=== PATIENT | male | born 1970 | race Caucasian/White ===

== ENCOUNTER 2021-07-13 16:27 | Emergency (ER) | payer OTHER, SELFPAY ==
--- NOTE | ~2021-07-13 | CT_ITS ---
EXAMINATION: CT HEAD WITHOUT CONTRAST CLINICAL INFORMATION: Dizziness. New atrial fibrillation. COMPARISON: None TECHNIQUE: Contiguous axial imaging was performed from the skull base to vertex without intravenous administration of contrast. This CT examination was performed using dose optimization techniques as appropriate, variously including the following: *Automated exposure control *Adjustment of mA and/or kV according to patient size (this includes techniques or standardized protocols for targeted exams where dose is matched to indication/reason for exam; i.e. extremities or head) *Use of iterative reconstruction technique DLP: 970 mGy-cm FINDINGS: No intracranial hemorrhage, tumors or definitive acute infarcts. Mild diffuse commensurate prominence of ventricles and sulci. No focal parenchymal lesions of the brain. Lobulated rounded soft tissue density within the left maxillary sinus and right maxillary sinus likely representing mucosal retention cyst. Normal orbits and globes. No mastoid effusions. CT/CT head/brain wo con IMPRESSION: -No acute intrarenal abnormalities.
[2021-07-13 17:13] VITALS: BP 147/99; PULSE 100; RESP 17; TEMP 36.9; O2SAT 98; BMI 33.3
[2021-07-13 21:32] LABS: MANUAL DIFF FLAG NO
[2021-07-13 21:38] LABS: Basophils Percent Auto 0.4 % (0-2); Eosinophils Absolute Auto 0.1 X10*3/uL (0.0-0.4); Hematocrit 46.7 % (42.0-52.0); Hemoglobin 16.6 g/dl (14.0-18.0); Imm Gran Abs Auto 0.02 X10*3/uL (0.00-0.03); Imm Gran Pct Auto 0.2 % (0.0-0.4); Lymphocytes Absolute Auto 3.9 X10*3/uL (1.2-4.9); Lymphocytes Percent Auto 36.3 % (20-40); Mean Corpuscular HGB Conc 35.5 g/dl (31.0-36.0); Mean Corpuscular Hemoglobin 29.6 pg (27.0-33.0); Mean Corpuscular Volume 83.2 fL (80.0-98.0); Mean Platelet Volume 9.8 fL (9.4-12.4); Monocytes Percent Auto 9.5 % (2-11); Neutrophils Absolute Auto 5.6 x10*3/uL (2.0-8.3); Neutrophils Percent Auto 52.6 % (45-73); Platelet Count 298 X10*3/uL (160-400); Red Blood Count 5.61 X10*6/uL (4.60-5.80); Red Cell Distribution Width 12.8 % (11.0-16.0); White Blood Count 10.7 X10*3/uL (4.8-10.8)
[2021-07-13 21:47] LABS: Alanine Aminotransferase 45 U/L (0-40); Alkaline Phosphatase 60 U/L (39-117); Anion Gap 12 (12-20); Aspartate Amino Transferase 32 U/L (5-37); Bilirubin Total 1.7 mg/dL (0.0-1.0); Blood Urea Nitrogen 13 mg/dL (9-16); Calcium 9.6 mg/dL (8.4-10.2); Carbon Dioxide 29 mmol/L (22-29); Chloride 103 mmol/L (96-108); Creatinine Clr Calc Pharmacy 136.9; Estimated Glomerular Filt Rate > 60; Glucose Random 95 mg/dL (60-115); Potassium 3.8 mmol/L (3.3-5.1); Sodium 140 mmol/L (135-145); Total Protein 7.2 g/dL (6.5-8.0)
--- NOTE | 2021-07-13 22:04 | ECG_ITS ---
Test Reason : dizzy/afib? Blood Pressure : / mmHG Vent. Rate : 102 BPM Atrial Rate : 000 BPM P-R Int : 000 ms QRS Dur : 092 ms QT Int : 372 ms P-R-T Axes : 000 056 131 degrees QTc Int : 484 ms Atrial fibrillation with rapid ventricular response Nonspecific T wave abnormality Abnormal ECG No previous ECGs available Referred By: Daniela Traore Electronically Signed By:JESSIE EARLY MD
--- NOTE | 2021-07-13 22:04 | ED_ITS ---
HPI - Dizziness General Chief Complaint: Dizziness Stated Complaint: Dizziness Time Seen by Provider: 07/13/21 22:03 Source: patient Mode of arrival: ambulatory History of Present Illness HPI Narrative: 50-year-old male without significant past medical history presents with mild, intermittent lightheadedness that began on and has not been associated with any headache, visual / auditory/ speech changes, sore throat, new cough, shortness of breath or nausea. Patient denies that this preferentially occurs while exerting himself and has not felt like he was going to pass out . Patient states that he was seen at [facility] and said that he was told he had atrial fibrillation at that time. Otherwise, he has denied any numbness / tingling/ weakness in any extremities, gait disturbances, or inability to perform any of his normal activities of daily living. Related Data Previous Rx's Medication Instructions Recorded metoprolol tartrate 25 mg tablet 12.5 mg PO BID #60 tab 07/13/21 Allergies Allergy/AdvReac Type Severity Reaction Status Date / Time No Known Allergies Allergy Verified 07/13/21 17:13 Review of Systems Review of Systems: Pertinent positives and negatives as stated in HPI and 10 point review of systems is otherwise negative. PMFSH Past Medical History Source: nursing notes reviewed Medical History Hypertension Social History Social History Advance Directives: No Advance Directives Information Provided: No Physical Exam Vital Signs: Vital Signs: Last Vital Signs Temp 98.4 F 07/13/21 17:13 Pulse 100 07/13/21 17:13 Resp 17 07/13/21 17:13 BP 147/99 H 07/13/21 17:13 Pulse Ox 98 07/13/21 17:13 Body Mass Index 33.3 VITAL SIGNS: Reviewed. GENERAL: Well developed, well nourished, in no acute distress. HEAD: Normocephalic/atraumatic EYES: PERRLA, EOMI OROPHARYNX: no oral lesions noted, posterior pharynx clear NECK: Supple, no adenopathy LUNGS: Normal breath sounds. No adventitious sounds or accessory muscle use. SpO2<98> CARDIOVASCULAR: Regular rate and rhythm without noted murmurs, no JVD or lower extremity edema. ABDOMEN: Soft, non-tender, non-distended with bowel sounds. MUSCULOSKELETAL: No tenderness, deformities, or effusions noted on gross inspection. EXTREMITIES: No cyanosis, clubbing or edema. SKIN: Inspection of the skin reveals no rashes NEUROLOGIC: Alert and oriented x 4. Strength and sensation to light touch were grossly intact x 4 , no facial asymmetry, no pronator drift, cranial nerves 2-12 grossly intact, steady gait,. Course Course Course Narrative: 50-year-old male who presents with lightheadedness and new onset atrial fibrillation without focal deficits or chest pain/ palpitations/ racing heart. No syncopal or near syncopal episodes described and on review of chart although there is a diagnosis of hypertension patient is not on any medications currently. Will provide the patient with Lopressor as heart rate> 100 and EKG confirms atrial fibrillation. [id number] - 0.6% Stroke risk/yr Review of all investigations otherwise negative for acute findings, patient was discharged home in stable condition with a script for rate control medication. He was also informed all results and findings and knows that he should follow up with Cardiology as well as primary care provider 1st thing in the morning. MDM - Dizziness Lab Data Result diagrams: 07/13/21 21:24 07/13/21 21:24 Labs: Lab Results 07/13/21 07/13/21 Range/Units 21:24 21:24 WBC 10.7 (4.8-10.8) X10*3/uL RBC 5.61 (4.60-5.80) X10*6/uL Hgb 16.6 (14.0-18.0) g/dl Hct 46.7 (42.0-52.0) % MCV 83.2 (80.0-98.0) fL MCH 29.6 (27.0-33.0) pg MCHC 35.5 (31.0-36.0) g/dl RDW 12.8 (11.0-16.0) % Plt Count 298 (160-400) X10*3/uL MPV 9.8 (9.4-12.4) fL Immature Gran % (Auto) 0.2 (0.0-0.4) % Neut % (Auto) 52.6 (45-73) % Lymph % (Auto) 36.3 (20-40) % [place] % (Auto) 9.5 (2-11) % Eos % (Auto) 1.0 (0-4) % Baso % (Auto) 0.4 (0-2) % Lymph # (Auto) 3.9 (1.2-4.9) X10*3/uL [place] # (Auto) 1.0 (0.1-1.2) X10*3/uL Eos # (Auto) 0.1 (0.0-0.4) X10*3/uL Baso # (Auto) 0.0 (0.0-0.2) X10*3/uL Abs Immat Gran (auto) 0.02 (0.00-0.03) X10*3/uL Absolute Neuts (auto) 5.6 (2.0-8.3) x10*3/uL Absolute Nucleated RBC 0.000 (0.0-0.012) X10*3/uL Nucleated RBC % (auto) 0.0 (0.0-0.2) /100WBC Sodium 140 (135-145) mmol/L Potassium 3.8 (3.3-5.1) mmol/L Chloride 103 (96-108) mmol/L Carbon Dioxide 29 (22-29) mmol/L Anion Gap 12 (12-20) BUN 13 (9-16) mg/dL Creatinine 0.90 (0.5-1.4) mg/dL Estim Creat Clear Calc 136.9 Estimated GFR > 60 Random Glucose 95 (60-115) mg/dL Calcium 9.6 (8.4-10.2) mg/dL Total Bilirubin 1.7 H (0.0-1.0) mg/dL AST 32 (5-37) U/L ALT 45 H (0-40) U/L Alkaline Phosphatase 60 (39-117) U/L Total Protein 7.2 (6.5-8.0) g/dL Albumin 4.0 (3.5-5.0) g/dL ECG Data Attestation: I personally reviewed and interpreted this ECG as follows: Prior ECG tracings: not available for review Interpretation: Atrial fibrillation, HR-102, no STEMI, QRS/ QTC within normal limits. Discharge Plan Discharge Clinical Impression: New onset atrial fibrillation Patient Disposition: Home, Self-Care Instructions: Metoprolol (By mouth), A-fib (Atrial Fibrillation) (ED) Additional Instructions: You have a new diagnosis of atrial fibrillation and you have been started on a new medication. Follow-up with the clinic in the morning for re-evaluation further outpatient management. You have also been given a referral to follow-up with Cardiology and should call the office in the morning. Return to the ER for acute worsening of symptoms. Prescriptions: New metoprolol tartrate 25 mg tablet 12.5 mg PO BID Qty: 60 RF: 0 Referrals: Devyn Cruz MD [Physician] - 2 days ( 50-year-old male with new onset atrial fibrillation, chads Vasc score is 0, started on Lopressor 12.5 b.i.d. since heart rate greater than 100.) Tamiko Turner MD [Primary Care Provider] - 2 days ( New onset AFib, chads Vasc-0, started on Lopressor 12.5 b.i.d.) Stand Alone Forms: Work/School Release
[2021-07-14] MEDS: Metoprolol Tartrate 12.5 MG HALFTAB PO (01:00)
[2021-07-14 01:08] VITALS: BP 164/108; PULSE 80
[2021-07-14 01:09] VITALS: BP 167/115; PULSE 84
[2021-07-14 01:10] VITALS: BP 164/108; BP 167/112; PULSE 80; PULSE 87; RESP 14; TEMP 36.3; O2SAT 97
== END 2021-07-14 01:38 | disposition home or self-care (01) ==
PROVIDERS: Emergency Provider Student in an Organized Health Care Education/Training Program; PCP Family Medicine
DX: I48.91 Unspecified atrial fibrillation (principal); R42 Dizziness and giddiness; I10 Essential (primary) hypertension
CPT/HCPCS: 36415; 70450; 80053; 85025; 93005; 99284

== ENCOUNTER → 2021-07-14 15:03 | Outpatient (BNVA) | payer OTHER, SELFPAY | PROVIDERS: PCP Family Medicine; Referring Provider Family Medicine; Visit Provider Internal Medicine ==

== ENCOUNTER → 2021-07-17 09:48 | Outpatient (REF) | payer OTHER, SELFPAY ==
--- NOTE | 2021-07-17 07:32 | CA_ITS ---
Transthoracic Echocardiogram Patient (Last, First, Middle): Jerad Christiansen P Gender: Male Date of : 1970 Age: 50 Procedure Date: 07/17/2021 Procedure Type: Transthoracic Echocardiogram Location: OP Height: 187.96 cm Weight: 117.94 kg BSA: 2.43 m2 Heart Rate: bpm BP: 122 / 60 mmHg Inspector Multifocal Lens: Referring MD: Devyn Cruz MD Symptoms: afib Study Quality: Fair ECG Rhythm: Atrial Fibrillation Conclusions: - The visually estimated ejection fraction is between 40-45% (difficult to assess). - At least moderate left ventricular hypertrophy. - No obvious valvular pathology seen on this study. Findings Left Ventricle Normal left ventricular cavity size. The left ventricular systolic function is mildly decreased. The visually estimated ejection fraction is between 40 45%. There is no evidence of regional wall motion abnormalities. Diastolic function is indeterminate on the basis of available data. At least moderate left ventricular hypertrophy. Right Ventricle Normal right ventricular cavity size. There is low normal right ventricular systolic function. Atria The left atrium is mildly dilated. The right atrium is normal in size. Aortic Valve There is a normal trileaflet aortic valve. There is no aortic valve stenosis. There is no aortic valve regurgitation. Mitral Valve There is mild mitral annular calcification. There is no mitral valve regurgitation. There is no mitral valve stenosis. Pulmonic Valve The pulmonic valve was not well visualized. Tricuspid Valve Normal tricuspid valve structure. There is trace tricuspid valve regurgitation. Tricuspid regurgitation envelope is inadequate for calculation of right ventricular systolic pressure. Great Vessels The aortic annulus, sinuses of valsalva, and asc aorta are normal in size. Venous The inferior vena cava is normal in size and collapses greater than 50% with inspiration. Pericardium/Pleural There is no evidence of pericardial effusion. Prior Study Comparison No prior study available for comparison. Recommendations, Care & Conclusions No obvious valvular pathology seen on this study. Measurements 2D Linear Measurements IVSd: 1.57 0.6-0.9/0.6-1.0 cm LVIDd: 4.20 3.9-5.3/4.2-5.9 cm LVIDd Index: 1.73 2.4-3.2/2.2-3.1 cm/m2 LVIDs: 2.98 2.0-3.6 cm LVPWd: 1.47 0.7-1.1 cm Ao Root: 3.30 2.1-3.5 cm LA Diam: 4.60 2.7-3.8/3.0-4.0 cm LAIDs Index: 1.89 1.5-2.3 cm/m2 LV Mass: 317.63 67-162/88-224 g LV Mass Index: 130.71 43-95/49-115 g/m2 LVOT Diam: 2.50 3.0+(-)1.3 cm 2D Systolic Function EF 4C: 42.60 >55% EF 2C: 27.90 >55% EF BiP: 37.80 >55% Mitral Valve MV Pk E: 0.83 MV PK A: 0.01 MV Decel Time: 184.00 E/A: 64.10 E'Lateral: 12.60 E'Medial: 3.86 E/E' Med: 21.40 E/E' Lat: 6.60 PHT: 54.00 MVA PHT: 4.07 Decel Toombs: 4.49 Aortic Valve AoV Pk Jaswinder: 1.26 AoV Mn Jaswinder: 0.79 AoV VTI: 0.26 AoV Pk Grad: 6.00 Aov Mn Grad: 3.00 SRINIVAS Cont.VTI: 2.60 LVOT LVOT Pk Jaswinder: 0.72 LVOT Mn Jaswinder: 0.44 LVOT VTI: 0.14 LVOT Pk Grad: 2.00 LVOT Mn Grad: 1.00 LVOT Diam: 2.50 LVOT Area: 4.91 Diastolic Function MV Pk E: 0.83 MV Pk A: 0.01 E/A: 64.10 E'Medial: 3.86 E/E' Med: 21.40 E' Laterial: 12.60 E/E' Lat: 6.60 Right Ventricle TAPSE (mm): 17.00 TVS' Jaswinder: 12.00 Great Vessels Aorta Ao Root-2D: 3.30 2.0-3.7 cm Ao Asc: 3.30 2.1-3.4 cm Pulmonary Valve PV Pk Jaswinder: 1.10 Peak PV Grad: 5.00 Updated in Other Vendor System with Status of Final Devyn Cruz MD electronically signed on 07/18/2021 12:48:21 PM with status of Final
--- NOTE | 2021-07-17 07:32 | HM_ITS ---
Total monitoring time 3 days and 2 hours. Underlying rhythm is atrial fibrillation. Minimum heart rate 46/Min. Maximum 174/Min. Average 88/Min. About 22% the time, right greater than 100/Min. Rare PVCs with minimal burden. No patient events. MTDD
== END ==
LOC: HO.CARD 09:48
PROVIDERS: PCP Family Medicine; Visit Provider Internal Medicine
DX: I48.91 Unspecified atrial fibrillation (principal)
CPT/HCPCS: 93242; 93306

== ENCOUNTER → 2021-07-20 10:49 | Outpatient (REF) | payer OTHER, SELFPAY | LOC: HO.SL 10:49 | PROVIDERS: Visit Provider Internal Medicine | DX: G47.33 Obstructive sleep apnea (adult) (pediatric) (principal); I48.91 Unspecified atrial fibrillation | CPT/HCPCS: 95806 ==

== ENCOUNTER 2021-07-21 14:41 | Outpatient (REF) | payer OTHER, SELFPAY ==
[2021-07-21 16:51] LABS: Anion Gap 12 (12-20); Blood Urea Nitrogen 15 mg/dL (9-16); Calcium 9.6 mg/dL (8.4-10.2); Carbon Dioxide 29 mmol/L (22-29); Chloride 104 mmol/L (96-108); Estimated Glomerular Filt Rate > 60; Glucose Random 84 mg/dL (60-115); Potassium 4.1 mmol/L (3.3-5.1); Sodium 141 mmol/L (135-145)
== END 2021-07-21 14:42 | disposition home or self-care (01) ==
LOC: HO.HMGCLDS 14:41
PROVIDERS: PCP Family Medicine; Visit Provider Internal Medicine
DX: I10 Essential (primary) hypertension (principal)
CPT/HCPCS: 36415; 80048

== ENCOUNTER → 2021-08-18 15:03 | Outpatient (BNVA) | payer OTHER, SELFPAY | PROVIDERS: PCP Family Medicine; Referring Provider Family Medicine; Visit Provider Internal Medicine ==

== ENCOUNTER → 2021-08-20 15:13 | Outpatient (BNVA) | payer OTHER, SELFPAY | PROVIDERS: Visit Provider Internal Medicine ==

== ENCOUNTER 2021-08-26 12:22 | Outpatient (REF) | payer OTHER, SELFPAY ==
[2021-08-26 14:25] LABS: Anion Gap 11 (12-20); Blood Urea Nitrogen 13 mg/dL (9-16); Calcium 9.9 mg/dL (8.4-10.2); Carbon Dioxide 28 mmol/L (22-29); Chloride 102 mmol/L (96-108); Estimated Glomerular Filt Rate > 60; Glucose Random 107 mg/dL (60-115); Sodium 137 mmol/L (135-145)
== END 2021-08-26 12:23 | disposition home or self-care (01) ==
LOC: HO.HMGCLDS 12:22
PROVIDERS: Visit Provider Internal Medicine
DX: I10 Essential (primary) hypertension (principal)
CPT/HCPCS: 36415; 80048

== ENCOUNTER 2021-08-28 11:11 | Day surgery (SDC) | payer OTHER, SELFPAY ==
[2021-08-24 09:36] VITALS: BMI 34.1
[2021-08-28 11:36] VITALS: BP 165/90; PULSE 90; RESP 16; TEMP 36.8; O2SAT 97
--- NOTE | 2021-08-28 12:49 | HO.ANESPROP2 ---
HPI - Anesthesia Eval Consult details Narrative: 51 M for Cardioversion SALOMÓN , A fib , HTN PMFSH Active Problems Active Problems: All Active Problems (Updated 08/20/21 @ 16:17 by Milady Burk MD) Obesity (BMI 30-39.9) (Acute) SALOMÓN (obstructive sleep apnea) (Acute) Cardiomyopathy (Acute) Atrial fibrillation with rapid ventricular response (Acute) Uncontrolled hypertension (Acute) Past Medical History Medical History (Updated 08/20/21 @ 16:17 by Milady Burk MD) Hypertension Obesity (BMI 30-39.9) Family History Family History Mother No pertinent family history Father Family history unknown Family history of problems with anesthesia: No Surgical History Surgical History No pertinent past surgical history History of Problems with Anesthesia: No Social History Social History Patient Tobacco Use Status: Former Tobacco user Quit Date: 12 years ago Second Hand Smoke Exposure: No Use of substances other than those prescribed or required for medical reasons: Yes Substance Use Type: Marijuana Substance Use Frequency: Daily Are you DNR?: No Advance Directives: No Advance Directives Information Provided: No Advance Directives on File: No Meds Allergies Allergy/AdvReac Type Severity Reaction Status Date / Time No Known Allergies Allergy Verified 08/20/21 15:34 Exam Exam Date and Time: August 28, 2021 1249 Height,Weight and Vital Signs: Height 6 ft 2 in Weight 120.656 kg Last Vital Signs Temp 98.3 F 08/28/21 11:36 Pulse 90 08/28/21 11:36 Resp 16 08/28/21 11:36 BP 165/90 H 08/28/21 11:36 Pulse Ox 97 08/28/21 11:36 Airway Mallampati Class: III Neck ROM: Full Loose/Missing/Broken Teeth: Yes (Chipped and missing ) Heart: irregular Lungs: bl breath sounds Assessment and Plan Assessment Anesthesia Assessment: Anesthesia Plan Discussed Final Anesthetic Review Family History of Problems with Anesthesia: No History of Problems with Anesthesia: No NPO: Yes ASA Class: III Final Preanesthetic Review: Meds/Allgs Chart Reviewed and Anes Risks/Benef Reviewed Patient Risk: Intermediate Procedure Risk: Intermediate Anesthetic Plan Anesthetic Plan: MAC: Disposition: Standard PACU
--- NOTE | 2021-08-28 13:05 | MHC.SHP ---
Pre-Procedural Eval Section A Date of Service: 08/28/21 The patient is an INPATIENT: No Section B Chief Complaint: afib Allergies: Allergies Allergy/AdvReac Type Severity Reaction Status Date / Time No Known Allergies Allergy Verified 08/20/21 15:34 Plan I have reviewed the history and physical and performed a pertinent physical examination on my patient. No changes have occurred unless specified.
--- NOTE | 2021-08-28 13:15 | HO.CARDIVERS ---
Cardioversion Procedure Note Cardioversion Date of Procedure: 08/28/2020 Ordering Provider: Performing Provider: Indication for Procedure: Atrial fibrillation with rapid rate Pre-Op Diagnosis: Atrial fibrillation Post-Op Diagnosis: Atrial fibrillation Consent: Informed consent obtained. Procedure: After informed consent was obtained, patient was taken to the PACU. The patient was then positioned appropriately. The cardioversion pads were placed in anteroposterior position. Once under anesthesia, 120 joules of synchronized shock was administered. The rhythm remained in atrial fibrillation. Then shocked again at 150J. Still in atrial fibrillation. Complications: None Impression: Unsuccessful cardioversion . Recommendations: To be decided. Needs to get SALOMÓN treated. Possibly reattempt in future.
[2021-08-28 13:16] VITALS: BP 147/85; PULSE 83; RESP 16; TEMP 36.2; O2SAT 99
[2021-08-28 13:30] VITALS: BP 137/80; PULSE 75; RESP 16; O2SAT 99
[2021-08-28 13:45] VITALS: BP 133/76; PULSE 78; RESP 16; O2SAT 99
[2021-08-28 14:00] VITALS: BP 120/84; PULSE 71; RESP 16; TEMP 36.2; O2SAT 97
== END 2021-08-28 14:15 | disposition home or self-care (01) ==
PROVIDERS: PCP Family Medicine; Visit Provider Internal Medicine
PROC: 5A2204Z Restoration of Cardiac Rhythm, Single (ICD-10-PCS; CPT 92960; principal; 2021-08-28 13:10)
DX: I48.91 Unspecified atrial fibrillation (principal); I10 Essential (primary) hypertension; I42.9 Cardiomyopathy, unspecified; G47.33 Obstructive sleep apnea (adult) (pediatric); E66.9 Obesity, unspecified; Z68.34 Body mass index [BMI] 34.0-34.9, adult; Z79.01 Long term (current) use of anticoagulants; Z79.899 Other long term (current) drug therapy; Z87.891 Personal history of nicotine dependence; F12.90 Cannabis use, unspecified, uncomplicated
CPT/HCPCS: 92960

== ENCOUNTER → 2021-10-08 13:19 | Outpatient (BNVA) | payer OTHER, SELFPAY | PROVIDERS: PCP Family Medicine; Referring Provider Family Medicine; Visit Provider Internal Medicine | DX: I48.19 Other persistent atrial fibrillation (principal); I42.9 Cardiomyopathy, unspecified; I10 Essential (primary) hypertension; G47.33 Obstructive sleep apnea (adult) (pediatric); Z79.01 Long term (current) use of anticoagulants | CPT/HCPCS: 93005 ==

== ENCOUNTER → 2021-10-15 13:56 | Outpatient (BNVA) | payer OTHER, SELFPAY | PROVIDERS: PCP Family Medicine; Visit Provider Internal Medicine ==

== ENCOUNTER 2021-11-10 06:54 | Day surgery (SDC) | payer OTHER, SELFPAY ==
[2021-11-04 15:40] VITALS: BMI 34.1
--- NOTE | 2021-11-09 10:36 | P.CONAN_ITS ---
Documented by User: Alycia Lynn NP 11/09/21 10:38 HPI - Anesthesia Eval Consult details Narrative: 51yo M for Cardioversion Last cardioversion 08/2021 with MAC (propofol 150) Xarelto for afib PMFSH Active Problems Active Problems: All Active Problems (Updated 11/04/21 @ 15:28 by Usha Pereira RN) Uncontrolled hypertension (Acute) Atrial fibrillation with rapid ventricular response (Acute) Cardiomyopathy (Acute) SALOMÓN (obstructive sleep apnea) (Acute) Persistent atrial fibrillation (Acute) Obesity (BMI 30-39.9) (Acute) Past Medical History Medical History Atrial fibrillation History of cardioversion Hypertension Obesity (BMI 30-39.9) On anticoagulant therapy On beta celia at home SALOMÓN on CPAP Family History Family History Mother No pertinent family history Father Family history unknown Family history of problems with anesthesia: No Surgical History Surgical History No pertinent past surgical history History of Problems with Anesthesia: No Social History Social History Patient Tobacco Use Status: Former Tobacco user Quit Date: 12 years ago Second Hand Smoke Exposure: No Substance Use Type: Marijuana Meds Allergies Allergy/AdvReac Type Severity Reaction Status Date / Time No Known Allergies Allergy Verified 11/04/21 15:37 Home Medications Medication Instructions Recorded Confirmed Last Taken Type amiodarone 200 mg tablet 200 mg PO BID 11/04/21 11/04/21 Unknown History Exam Exam Date and Time: November 09, 2021 1036 Height,Weight and Vital Signs: Height 6 ft 2 in Weight 120.656 kg Pertinent Lab Results Pertinent Lab Results: Laboratory Tests 07/13/21 08/26/21 21:24 12:25 WBC 10.7 Hgb 16.6 Hct 46.7 Plt Count 298 Sodium 137 Potassium 4.0 Chloride 102 Carbon Dioxide 28 BUN 13 Creatinine 0.87 Narrative Narrative: EKG 09/2021 afib @ 81 ECHO 07/2021 Conclusions: - The visually estimated ejection fraction is between 40-45% ? ? (difficult to assess). ? - At least moderate left ventricular hypertrophy.? - No obvious valvular pathology seen on this study.? ? Assessment and Plan Assessment Anesthesia Assessment: Chart Reviewed Final Anesthetic Review Family History of Problems with Anesthesia: No History of Problems with Anesthesia: No Documented by User: Ruchi Paul MD 11/10/21 06:53 [facility] Past Medical History Medical History Atrial fibrillation History of cardioversion Hypertension Obesity (BMI 30-39.9) On anticoagulant therapy On beta celia at home SALOMÓN on CPAP Functional capacity: independent ambulation Family History Family History Mother No pertinent family history Father Family history unknown Surgical History Surgical History No pertinent past surgical history Social History Social History Patient Tobacco Use Status: Former Tobacco user Quit Date: 12 years ago Second Hand Smoke Exposure: No Substance Use Type: Marijuana Meds Allergies Allergy/AdvReac Type Severity Reaction Status Date / Time No Known Allergies Allergy Verified 11/04/21 15:37 Home Medications Medication Instructions Recorded Confirmed Last Taken Type amiodarone 200 mg tablet 200 mg PO BID 11/04/21 11/04/21 Unknown History Exam Airway Mallampati Class: III TM Dist: >3cm Neck ROM: Full Heart: irregular Lungs: CTA Assessment and Plan Final Anesthetic Review ASA Class: III Final Preanesthetic Review: No Changes in Pt Med Stat, Meds/Allgs Chart Reviewed, Consent Obtained/Reviewed and Anes Risks/Benef Reviewed Patient Risk: Low Procedure Risk: Low Anesthetic Plan Anesthetic Plan: GA Disposition: Standard PACU
--- NOTE | 2021-11-10 07:59 | PC.NURSE ---
pt unsure what bp meds taken this am but states he did not take xarelto. dr. peck notifed. give xaralto 20mg po - given as ordered. also aware of bp 164/101 with repeat 172/110 asymptomatic & hr afib 50's
[2021-11-10 08:01] VITALS: BP 164/101; PULSE 54; RESP 18; TEMP 36.4; O2SAT 96
--- NOTE | 2021-11-10 08:28 | P.HPSUR_ITS ---
Pre-Procedural Eval Section A Date of Service: 11/10/21 The patient is an INPATIENT: No Section B Chief Complaint: afib Details of Present Illness: Atrial fibrillation, cardiomyopathy; Relevant Family History (Specify if Yes): No Relevant Social History: None Present Medications: see Short Stay Collaborative assessment Medical History: Significant History (atrial fibrillation, HTN, obesity) History of Previous Operations: Relevant previous surgery/procedure and date(s) (cardioversion performed recently) Allergies: Allergies Allergy/AdvReac Type Severity Reaction Status Date / Time No Known Allergies Allergy Verified 11/04/21 15:37 Review of Systems Review of Systems Comment: No cardiac symptoms like angina, shortness of breath, palpitations, dizziness or syncope. Remainder of 10 system review negative. Exam Exam Comment: AAOx3 No JVD HEENT - normal Cardiac- normal heart sounds; no murmurs RS- normal breath sounds Abd- soft [employer]- intact Legs- normal appearance SKin- normal Plan I have reviewed the history and physical and performed a pertinent physical examination on my patient. No changes have occurred unless specified. Will proceed with cardioversion. Has been on Xarelto.
[2021-11-10] MEDS: Lactated Ringers 1,000 ML 100 ML IVCONT (08:29)
--- NOTE | 2021-11-10 08:29 | HO.ANESPROP2 ---
[facility] Active Problems Active Problems: All Active Problems (Updated 11/04/21 @ 15:28 by Usha Pereira, ARACELI) Uncontrolled hypertension (Acute) Atrial fibrillation with rapid ventricular response (Acute) Cardiomyopathy (Acute) SALOMÓN (obstructive sleep apnea) (Acute) Persistent atrial fibrillation (Acute) Obesity (BMI 30-39.9) (Acute) Past Medical History Medical History Atrial fibrillation History of cardioversion Hypertension Obesity (BMI 30-39.9) On anticoagulant therapy On beta celia at home SALOMÓN on CPAP Functional capacity: independent ambulation Family History Family History Mother No pertinent family history Father Family history unknown Family history of problems with anesthesia: No Surgical History Surgical History No pertinent past surgical history History of Problems with Anesthesia: No Social History Social History Patient Tobacco Use Status: Former Tobacco user Quit Date: 12 years ago Second Hand Smoke Exposure: No Substance Use Type: Marijuana Are you DNR?: No Advance Directives: No Advance Directives Information Provided: Yes Meds Allergies Allergy/AdvReac Type Severity Reaction Status Date / Time No Known Allergies Allergy Verified 11/04/21 15:37 Active Medications: Current Medications Lactated Ringer's (Lr) 1,000 mls @ 100 mls/hr IVCONT .Q10H [facility] Home Medications Medication Instructions Recorded Confirmed Last Taken Type amiodarone 200 mg tablet 200 mg PO BID 11/04/21 11/04/21 Unknown History Exam Exam Date and Time: November 10, 2021 0829 Height,Weight and Vital Signs: Height 6 ft 2 in Weight 120.656 kg Last Vital Signs Temp 97.5 F 11/10/21 08:01 Pulse 54 11/10/21 08:01 Resp 18 11/10/21 08:01 BP 164/101 H 11/10/21 08:01 Pulse Ox 96 11/10/21 08:01 Airway Mallampati Class: III TM Dist: >3cm Neck ROM: Full Heart: irregular Lungs: CTA Assessment and Plan Final Anesthetic Review Family History of Problems with Anesthesia: No History of Problems with Anesthesia: No ASA Class: III Final Preanesthetic Review: No Changes in Pt Med Stat, Meds/Allgs Chart Reviewed, Consent Obtained/Reviewed and Anes Risks/Benef Reviewed Patient Risk: Intermediate Procedure Risk: Low Anesthetic Plan Anesthetic Plan: GA Disposition: Standard PACU
--- NOTE | 2021-11-10 08:54 | P.PNCAR_ITS ---
Cardioversion Procedure Note Cardioversion Date of Procedure: 11/10/2021 Ordering Provider: Performing Provider: Indication for Procedure: Atrial fibrillation and cardiomyopathy Pre-Op Diagnosis: Atrial fibrillation Post-Op Diagnosis: Atrial fibrillation History: As in detailed H&P. Consent: Informed consent obtained. Procedure: After informed consent was obtained, patient was taken to the PACU. The patient was then positioned appropriately. The cardioversion pads were placed in ante roposterior position. Once under anesthesia, 150 joules of synchronized shock was administered. After the 1st shock, the rhythm remained in atrial fibrillation. Then he was shocked again at 150 joules. There was a very brief conversion to sinus for about couple of beats and then he went back into atrial fibrillation. He remained in atrial fibrillation at end of procedure. Complications: None Impression: Patient did not respond to cardioversion. Recommendations: Stop amiodarone. Continue beta-blockers and anticoagulation.
[2021-11-10 08:55] VITALS: BP 154/84; PULSE 57; RESP 16; TEMP 36.4; O2SAT 100
[2021-11-10 09:10] VITALS: BP 117/85; PULSE 57; RESP 18; O2SAT 100
[2021-11-10 09:24] VITALS: BP 116/72; PULSE 60; RESP 18; O2SAT 97
--- NOTE | 2021-11-10 09:27 | HO.POSTANES ---
Post Anesthesia Evaluation Post Anesthesia Evaluation Vital Signs: Vital Signs Temp Pulse Resp BP Pulse Ox 11/10/21 09:24 60 18 116/72 97 11/10/21 09:10 57 18 117/85 100 11/10/21 08:55 97.6 F 57 16 154/84 H 100 11/10/21 08:01 97.5 F 54 18 164/101 H 96 Anesthesia: General Mental Status: Awake Pain Control: Satisfactory Nausea/Vomiting: None Hydration: Adequate Anesthesia-Related Issues: No Anes. Related Issues
[2021-11-10 09:34] VITALS: BP 127/82; PULSE 55; RESP 18; TEMP 36.7; O2SAT 97
== END 2021-11-10 10:02 | disposition home or self-care (01) ==
PROVIDERS: PCP Family Medicine; Visit Provider Internal Medicine
PROC: 5A2204Z Restoration of Cardiac Rhythm, Single (ICD-10-PCS; principal; 2021-11-10 08:30)
DX: I48.19 Other persistent atrial fibrillation (principal); Z79.01 Long term (current) use of anticoagulants; I42.9 Cardiomyopathy, unspecified; I10 Essential (primary) hypertension; Z79.899 Other long term (current) drug therapy; F12.90 Cannabis use, unspecified, uncomplicated
CPT/HCPCS: 92960

== ENCOUNTER → 2021-12-01 13:27 | Outpatient (BNVA) | payer OTHER, SELFPAY | PROVIDERS: PCP Family Medicine; Referring Provider Family Medicine; Visit Provider Internal Medicine | DX: I48.19 Other persistent atrial fibrillation (principal); I42.9 Cardiomyopathy, unspecified; I10 Essential (primary) hypertension; G47.33 Obstructive sleep apnea (adult) (pediatric) | CPT/HCPCS: 93005 ==

== ENCOUNTER 2024-02-15 13:03 | Outpatient (AMB) | payer OTHER, SELFPAY ==
[2024-02-15 13:56] VITALS: BP 132/84; PULSE 99; TEMP 36.5; O2SAT 97; BMI 32.1
--- NOTE | 2024-02-15 13:56 | AM.OFFWIN_ITS ---
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 He states he has pain in his sinuses, head congestion, runny nose. He denies any fevers, shortness of breath, ear pain or trouble breathing. He has just been tolerating it but he says he can not take it anymore, nothing seems to make it better or worse. [facility] Medical History Atrial fibrillation History of cardioversion Hypertension Obesity (BMI 30-39.9) On anticoagulant therapy On beta celia at home SALOMÓN on CPAP Surgical History No pertinent past surgical history Family History Mother No pertinent family history Father Family history unknown Social History Patient Tobacco Use Status: Former Tobacco user Second Hand Smoke Exposure: No Substance Use Type: Marijuana Review of Systems Const All systems reviewed & are unremarkable except as noted in HPI and below Physical Exam Vital Signs: Last Vital Signs Temp 97.7 F 02/15/24 13:56 Pulse 99 02/15/24 13:56 BP 132/84 02/15/24 13:56 Pulse Ox 97 02/15/24 13:56 Oxygen Delivery Method Room Air 02/15/24 13:56 BMI result Body Mass Index 32.1 Const General: cooperative, healthy appearing, comfortable and no acute distress Orientation/consciousness: patient oriented x3 Limitations: no limitations HEENT Head: Yes normal to inspection Ears: hearing grossly normal bilaterally, external ears normal and TM's normal bilaterally General nose exam: Normal external nose present, Normal nares present and No na padmini discharge present Face and sinus: Yes normal facial exam and Yes sinus tenderness (right side ethmoid) Mouth: Normal oral and palatal mucosa present and moist mucous membranes Throat: Yes tonsils normal, Yes uvula midline, Yes posterior oropharynx abnormal (Erythema) and Yes cobblestoning Eyes General: appearance normal, both eyes and all related structures Neck Neck: Yes normal visual inspection Resp Effort & Inspection: normal respiratory effort and able to speak in complete sentences Skin General skin exam: no rashes or lesions noted Neuro General: patient oriented x3 Extrem General: Yes normal to inspection and Yes no clubbing, cyanosis or edema Assessment & Plan Assessment & Plan (1) Sinusitis: Code(s): J32.9 - Chronic sinusitis, unspecified Qualifiers: Sinusitis location: ethmoidal Chronicity: acute Recurrence: non- recurrent Qualified Code(s): J01.20 - Acute ethmoidal sinusitis, unspecified Plan: As it has been almost a month, we will treat patient with antibiotics as it is likely bacterial. Also recommended Neti pot with distilled water, Flonase and a daily allergy pill. Plan see above Medications: New amoxicillin-pot clavulanate 875-125 mg 1 tab PO Q12H 10 tabs 0RF Coding Level of Care Code New Pt Level 3 (99750) Diagnoses Acute non-recurrent ethmoidal sinusitis J01.20 Sinusitis location: ethmoidal Chronicity: acute Recurrence: non-recurrent
== END 2024-02-15 14:34 | disposition home or self-care (01) ==
PROVIDERS: PCP Family Medicine; Visit Provider Physician Assistant
DX: J01.20 Acute ethmoidal sinusitis, unspecified (principal)
CPT/HCPCS: 99203

== ENCOUNTER 2024-12-31 10:07 | Outpatient (AMB) | payer OTHER, SELFPAY ==
--- OUTSIDE RECORDS SUMMARY | 2024-12-31 10:35 | XMS_ITS | Encounter Summary ---
Author Organization [facility] Address [address] [place] [address] Care Team Providers Care Supervisor Of Communications Name Role Phone Physician, Pcp Unknown Primary Care Provider Emerita vailable Encounter Details Date Type Department Care Team (Late st Contact Info) Description 10/08/2024 Lab Requisition [facility] - Main Lab [address] [facility] [place] [address] Divya Welch PA [address] [place] [address] Gross hematuria Social History Tobacco Use Types Packs/Day Years Used Date Smoking Tobacco: Never Assessed Sex and Gender Information Value Date Recorded Sex Assigned at Not on file Legal Sex Male 9:31 AM EST Gender Identity Not on file Sexual Orientation Not on file documented as of this encounter Plan of Treatment Not on file documented as of this encounter Procedures Procedure Name Priority Date/Time Associated Diagnosis Comments AP OUTSIDE CONSULT Routine 10/02/2024 12 :00 AM EST Gross hematuria documented in this encounter Results * Anatomic pathology outside consult (10/02/2024 12:00 AM EST) Final Diagnosis A. Urine, Voided, ([id number]): Negative for high grade urothelial carcinoma. Results of UroVysion fluorescence in situ hybridization (FISH) testing: CEP3: Normal CEP7: Normal CEP17: Normal LSI 9p21: Normal Interpretation: Normal profile Controls stained appropriately. Note: The results are intended as a screening device and should be interpreted in association with other clinical and pathological findings. 10/12/2024 9:13 AM EST [facility] ([facility] Clinical Information Gross hematuria R31.0 Urine Cytology/FISH (now) 10/12/2024 9:13 AM EST [facility] Gross Description A. Urine, Voided, ([id number]): Received one ThinPrep slide for cytology and one ThinPrep slide for UroVysion FISH 10/12/2024 9:13 AM [facility] Disclaimer Unless otherwise specified, all tissue is 10% NB formalin fixed and paraffin embedded. Technical pathology services provided by [facility] at [address] [place] [address] [address], [place] [address] (CLIA #[id number]/Renae Raymond MD, Client Onboarding Analyst) 10/12/2024 9:13 AM [facility] Tissue Urine specimen from urethra / Unknown 10/02/2024 10/08/2024 9:35 AM EST us Divya SCHWARZ LAB PATHOLOGY ORDERABLES Final Result [facility] [address] [place] [address], [place] [phone] documented in this encounter Visit Diagnoses Diagnosis Gross hematuria documented in this encounter Care Teams Supervisor Of Communications Relationship Specialty Start Date End Date Physician, Pcp Unknown PCP - General 10/08/24 documented as of this encounter
--- OUTSIDE RECORDS SUMMARY | 2024-12-31 10:35 | XMS_ITS | Clinical Summary ---
Author Organization 299 [facility] Address [address] [place] [address] Phone Care Team Providers Care Cloth Desizing Range Tender Name Role Phone Physician, Pcp Unknown Primary Care Provider Emerita vailable Encounters Date Type Department Care Team Description 10/08/2024 Lab Requisition [facility] - Main Lab [address] [facility] [place] [address] Divya Welch PA Gross hematuria from Last 3 Months Social History Tobacco Use Types Packs/Day Years Used Date Smoking Tobacco: Never Assessed Sex and Gender Information Value Date Recorded Sex Assigned at Not on file Legal Sex Male 9:31 AM EST Gender Identity Not on file Sexual Orientation Not on file Plan of Treatment Health Maintenance Due Date Last Done Comments DTaP,Tdap,and Td Vaccines (1 - Tdap) 1991 Hepatitis B Vaccines (1 of 3 - 19+ 3-dose series) 1991 Pneumococcal Vaccine: 50+ Ye ars (1 of 1 - PCV) 2022 Zoster Vaccines (1 of 2) 2022 COVID-19 Vaccine ( - 2023-2 5 season) 2024 Cholesterol Screening (Lipid Panel) 10/08/2024 Colorectal Cancer Screening: Colonoscopy 10/08/2024 Depression Screening 10/08/2024 HIV Screening 10/08/2024 Hepatitis C Screening 10/08/2024 Social Influencers of Health Screening 10/08/2024 Influenza Vaccine (Season Ended) 2025 HIB Vaccines Aged Out No longer eligi ble based on patient's age to complete this topic HPV Vaccines Aged Out No longer eligi ble based on patient's age to complete this topic Hepatitis A Vaccines Aged Out No long er eligible based on patient's age to complete this topic IPV Vaccines Aged Out No longer eligi ble based on patient's age to complete this topic MMR Vaccines Aged Out No longer eligi ble based on patient's age to complete this topic Meningococcal ACWY Vaccine Aged Out N o longer eligible based on patient's age to complete this topic Meningococcal B Vaccine Aged Out No l onger eligible based on patient's age to complete this topic Pneumococcal Vaccine: Pediat rics (0 to 5 Years) and At-Risk Patients (6 to 64 Years) Aged Out No longer eligible b ased on patient's age to complete this topic RSV Immunization Patients Un taryn 20 months Aged Out No longer eligible b ased on patient's age to complete this topic Varicella Vaccines Aged Out No longer eligible based on patient's age to complete this topic Insurance [facility] PUBLIC PLANS Care Teams Cloth Desizing Range Tender Relationship Specialty Start Date End Date Physician, Pcp Unknown PCP - General 10/08/24
--- OUTSIDE RECORDS SUMMARY | 2024-12-31 10:35 | XMS_ITS | Continuity of Care Document ---
Author Organization [facility] [place] [facility] Address [address] [place] [address] Phone Care Team Providers Care Cuff Turner Name Role Phone NadimpRoss echevarria DMDi Unavailable Unavail able Procedures Procedure Date Dental Kept Appt No Charge Dental Kept Appt No Charge Dental Kept Appt No Charge Dental Kept Appt No Charge Dental Kept Appt No Charge Dental Kept Appt No Charge Advance Directives Directive Yes / No Effective Date File Name No Information Encounters Encounter Description Practice Location Reason(s) For Visit Diagnoses Date Provider Providers Copied on Encounter [facility], [address] [place] [address],[address], [place], [place], [id number], tel:[phone] [facility] No Information 2 Nadimpalli Sloanathi. [address], [place], [id number], [place]. tel:[phone] [facility], [address] [place] [address] 2,[address], [place], [place], [id number], [place] tel:[phone] [facility] No Information 2 No Information linda [facility], [address] [place] [address],[address], [place], [id number], [place] tel:[phone] [facility] No Information 2 No Information linda [facility], [address] [place] [address],[address], [place], [id number], [place] tel:[phone] [facility] No Information 2 No Information [facility], [address] [facility] [address], [place], [place], [id number], tel:[phone] [facility] No Information 2 Nadimpalli Parvathi. [address], [place], [id number], [place]. tel:[phone] [facility], [address] [facility] [address], [place], [place], [id number], [place] tel:[phone] [facility] No Information 2 Nadimpalli Parvathi. [address], [place], [id number], [place]. tel:[phone] Family History Family Member Type Diagnosis Age At Onset No Information Payers Payer name Insurance type Covered green party ID Robbi ramos(nicolasa) [employer] [facility] CI [id number] D [facility] Safety Net CI [id number] Social History Type Description Quantity Date Captured Comments Sex Male Smoking Status No Information Chief Complaint And Reason For Visit No Information Reason For Referral Reason For Referral No Information History Of Present Illness Encounter Date Complaint History Of Prese nt Illness No Information Functional Status Date Functional Assessmen t No Information Instructions Date Instruction Additional Infor mation No Information Assessments Type Assessment Date No Information Patient Care Teams Name Effective Dates (start - stop) Status Members No Information
--- NOTE | 2024-12-31 11:36 | MHC.OFFWIV ---
Intake Vital Signs 12/31/24 11:37 Weight 256 lb BP 130/80 Blood Pressure Location Rt brachial Position Sitting Pulse 80 Pulse Source Pulse Oximeter Pulse Oximetry (%) 98 Oxygen Delivery Method Room Air Intake Visit Reasons: EP Rash Intake Note: Patient here for rash on buttocks that has been present for a couple of weeks now w/no improvement, he would also like to discuss cyst around that same area. Patient Tobacco Use Status: Former Tobacco user Allergies No Known Allergies Allergy (Verified 12/31/24 11:38) Do you need a note to return to daycare/school/sports/work: No HPI HPI Comments History of Present Illness Details History of Present Illness - The patient is a 54-year-old male presenting with a worsening skin condition for the past three to four weeks, primarily involving the low back and upper buttocks. - The condition began with redness and skin irritation. Initial self-treatment included Desitin and A&D ointment, which offered limited improvement. - The skin condition has worsened over time, causing discomfort and intermittent itchiness, with no recent exposure to common allergens or irritants and no systemic symptoms like fever. - The patient has a noticeable concern about the persistence and progression of symptoms, despite self-care efforts. Physical Exam General: Cooperative, healthy appearing, comfortable, no acute distress and well developed Orientation: Patient oriented x3 Limitations: No limitations Head: Normal to inspection Ears: Hearing grossly normal bilaterally Nose: Normal External nose present Face and sinus: Normal facial exam Eyes: Appearance normal, both eyes and all related structures Neck: Normal visual inspection and Yes full ROM Respiratory: Normal respiratory effort and able to speak in complete sentences. Skin: 4cm x 2cm thickened white plaque in the upper intergluteal cleft with surrounding erythema at the edges, no vesicles, no ttp, no drainage noted. no warmth. Neuro: Patient oriented x3 Extremities: Normal to inspection [facility] Medical History Atrial fibrillation History of cardioversion Hypertension Obesity (BMI 30-39.9) On anticoagulant therapy On beta celia at home SALOMÓN on CPAP Surgical History No pertinent past surgical history Family History Mother No pertinent family history Father Family history unknown Social History Patient Tobacco Use Status: Former Tobacco user Second Hand Smoke Exposure: No Substance Use Type: Marijuana Review of Systems Const All systems reviewed & are unremarkable except as noted in HPI and below Physical Exam Vital Signs: Last Vital Signs Pulse 80 12/31/24 11:37 BP 130/80 12/31/24 11:37 Pulse Ox 98 12/31/24 11:37 Oxygen Delivery Method Room Air 12/31/24 11:37 Assessment & Plan Assessment & Plan (1) Psoriasis: Code(s): L40.9 - Psoriasis, unspecified Plan: I will initiate treatment with Clobetasol propionate for the patient's psoriasis-like skin condition. The patient is instructed to apply the topical steroid twice a day, morning and night, for three weeks. Adequate supply with two jars 90 grams total is provided. Follow-up with the primary care physician or a textile designs sales representative is recommended if the condition does not improve. Proper monitoring of symptoms and adherence to the treatment plan is advised. The patient can collect the medication from [facility] on [address] Patient was informed and verbally consented to the use of an ambient scribe for clinic note documentation during this visit. Medications: New clotrimazole 1% 1 appl topical bid 3 weeks 90 grams 1RF Coding Level of Care Code New Pt Level 3 (04570) Diagnoses Psoriasis L40.9
[2024-12-31 11:37] VITALS: BP 130/80; PULSE 80; O2SAT 98
== END 2024-12-31 12:19 | disposition home or self-care (01) ==
PROVIDERS: PCP Family Medicine; Visit Provider Physician Assistant
DX: L40.9 Psoriasis, unspecified (principal)

== ENCOUNTER → 2024-12-31 10:07 | Outpatient (BNVA) | payer OTHER, SELFPAY | PROVIDERS: PCP Family Medicine; Visit Provider Physician Assistant | DX: L40.9 Psoriasis, unspecified (principal) | CPT/HCPCS: 99202 ==

== ENCOUNTER 2025-07-24 15:55 | Outpatient (AMB) | payer OTHER, SELFPAY ==
--- NOTE | 2025-07-24 15:56 | A.OFFVIS_ITS ---
Vital Signs 07/24/25 16:04 Height 6 ft 2 in Weight 272 lb 2 oz BMI 34.9 Intake Visit Reasons: Perianal cyst Intake Note: Patient presents for an assessment for perianal cyst. Pt c/o; reports he has this cyst for many years, reports he rides bike and this is how he developed this cyst, reports depending on where he sits it can get swollen and painful, occasional drainage, he is on Xarelto and is followed by . Cylinder Inspector Required: No Accompanied by: Self / Same As Patient Allergies No Known Allergies Allergy (Verified 07/24/25 16:07) HPI HPI Perianal cyst: Details: 54-year-old male referred for a perineal cyst. He says that he has had this ?cyst? in the perineum he had he describes this to get occasionally swollen and would drain spontaneously maybe about twice a year However, recently, he says that he noticed this to be happening every 3-4 months. He denies any significant pain. He describes more of an annoyance. He is on anticoagulation for atrial fibrillation. He also has obstructive sleep apnea and hypertension. [facility] Medical History (Updated 07/24/25 @ 16:15 by Obey Carr MD) 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 SALOMÓN on CPAP On beta celia at home On anticoagulant therapy History of cardioversion Atrial fibrillation Obesity (BMI 30-39.9) Hypertension Surgical History No pertinent past surgical history Family History Mother No pertinent family history Father Family history unknown Social History Patient Tobacco Use Status: Former Tobacco user Second Hand Smoke Exposure: No Substance Use Type: Marijuana Review of Systems Const Denies chills and Denies fever(s) Card Denies chest pain, Denies dyspnea and Denies dyspnea on exertion Resp Denies cough, Denies dyspnea and Denies dyspnea on exertion GI Denies hematochezia and Denies change in bowel habits Denies hematuria and Denies difficulty urinating Musc Denies back pain and Denies limited range of motion Neuro Denies focal weakness and Denies convulsions Psych Denies depression and Denies mood swings Physical Exam Vital Signs: BMI result Body Mass Index 34.9 Const General: comfortable and no acute distress Orientation/consciousness: patient oriented x3 Neck Neck: Yes no lymphadenopathy Resp Auscultation: clear to auscultation bilaterally Cardio Other: Irregular rhythm Rhythm: regular rhythm GI Palpation (GI): Soft to palpation, nontender and no guarding Other: In the perineum - note of open wound with hypergranulation, about has a 1 cm, no residual fluctuance nor induration Neuro General: patient oriented x3 Office Procedures Cauterization - Skin lesions Skin Cauter Details: The open wound with hypergranulation is a 1 cm cavity. I cauterized this using multiple silver nitrate sticks. He tolerated procedure well. There were no immediate complications. I instructed him on good wound care. Destruction: 75118- Chemical Cautery, Granulation Tissue Assessment & Plan Assessment & Plan (1) 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: Code(s): N50.89 - Other specified disorders of the male genital organs Category: Medical Plan: He has what seems to be a cyst in the perineal area. This seems to have spontaneously opened up and drained. There was note of hypergranulation tissue in the open wound. I proceeded to therefore cauterized this open cavity with silver nitrate sticks. I instructed him to do good wound care. I told him that if he feels that this has not improved after a month or 2, I can see him again in the office to re- evaluate him as we can always do formal excision of the area. He understands the plan well. Coding Level of Care Code New Pt Level 3 (75623) Diagnoses 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 N50.89 CPT Codes Skin Cauter - Destruction: 09164- Chemical Cautery, Granulation Tissue ([id number])
[2025-07-24 16:04] VITALS: BMI 34.9
--- OUTSIDE RECORDS SUMMARY | 2025-07-25 00:41 | XMS_ITS | Clinical Summary ---
Author Organization 299 [facility] Address [address] [place] [address] Phone Care Team Providers Care Accordion Tuner Name Role Phone Physician, Pcp Unknown Primary Care Provider Emerita vailable Social History Tobacco Use Types Packs/Day Years Used Date Smoking Tobacco: Never Assessed Sex and Gender Information Value Date Recorded Sex Assigned at Not on file Legal Sex Male 9:31 AM EST Gender Identity Not on file Sexual Orientation Not on file Plan of Treatment Health Maintenance Due Date Last Done Comments Colorectal Cancer Screening: Colonoscopy 1972 DTaP,Tdap,and Td Vaccines (1 - Tdap) 1991 Hepatitis B Vaccines (1 of 3 - 19+ 3-dose series) 1991 Pneumococcal Vaccine: 50+ Ye ars (1 of 1 - PCV) 2022 Zoster Vaccines (1 of 2) 2022 Depression Screening 08/15/2024 Cholesterol Screening (Lipid Panel) 10/08/2024 HIV Screening 10/08/2024 Hepatitis C Screening 10/08/2024 Social Influencers of Health Screening 10/08/2024 COVID-19 Vaccine (1 - 2024-2 6 season) 2025 Influenza Vaccine (#1) 2025 RSV Immunization Adult Patie nts (1 - 1-dose 75+ series) 2047 HIB Vaccines Aged Out No longer eligi [...] patient's age to complete this topic Insurance [facility] [employer] PL[employer] Care Teams Accordion Tuner Relationship Specialty Start Date End Date Physician, Pcp Unknown PCP - General 10/08/24
--- OUTSIDE RECORDS SUMMARY | 2025-07-25 00:41 | XMS_ITS | Encounter Summary ---
Author Organization [facility] Address [address] [place] [address] Care Team Providers Care Sewer Digger Name Role Phone Physician, Pcp Unknown Primary Care Provider Emerita vailable Encounter Details Date Type Department Care Team (Late st Contact Info) Description 10/08/2024 Lab Requisition [facility] - Main Lab [address] [facility] [place] [address] Divya Welch PA [address] [place] [address] Gross hematuria Social History Tobacco Use Types [...] AM EST) Final Diagnosis A. Urine, Voided, ([id number]): Negative for high grade urothelial carcinoma. Results of UroVysion fluorescence in situ hybridization (FISH) testing: CEP3: Normal CEP7: Normal CEP17: Normal LSI 9p21: Normal Interpretation: Normal profile Controls stained appropriately. Note: The results are intended as a screening device and should be interpreted in association with other clinical and pathological findings. 10/12/2024 9:13 AM EST [facility] ([facility]) [facility] at 0913 EST Clinical Information Gross hematuria R31.0 Urine Cytology/FISH (now) 10/12/2024 9:13 AM EST [facility] Gross Description A. Urine, Voided, ([id number]): Received one ThinPrep slide for cytology and one ThinPrep slide for UroVysion FISH 10/12/2024 9:13 AM [facility] Disclaimer Unless otherwise specified, all tissue is 10% NB formalin fixed and paraffin embedded. Technical pathology services provided by [facility] at [address] [place] [address] [address], [place] [address] (CLIA #[id number]/Renae Raymond MD, Tank Cleaning Supervisor) 10/12/2024 9:13 AM [facility] Tissue Urine specimen from urethra / Unknown 10/02/2024 10/08/2024 9:35 AM EST us Divya SCHWARZ LAB PATHOLOGY ORDERABLES Final Result [facility] [address] [place] [address], [place] [phone] documented in this encounter Visit Diagnoses Diagnosis Gross hematuria documented in this encounter Care Teams Sewer Digger Relationship Specialty Start Date End Date Physician, Pcp Unknown PCP - General 10/08/24 documented as of this encounter
--- OUTSIDE RECORDS SUMMARY | 2025-07-25 00:41 | XMS_ITS | Encounter Summary ---
Author Organization [employer] Address [address] [facility] [address] [place] [address] Care Team Providers Care Crm Consultant Name Role Phone Betty Bradley MD Primary Care Provider [phone] Ivana Barnes CNP Primary Care Provider [phone] Encounter Details Date Type Department Care Team (Late st Contact Info) Description 05/08/2025 Education [facility] [address] [place] [address] Cherie Brandon RN Social History Tobacco Use Types Packs/Day Years Used Date Smoking Tobacco: Former Cigarettes Smokeless Tobacco: Former Alcohol Use Standard Drinks/Week Comments Never 0 (1 standard drink = 0.6 oz pur e alcohol) Depression Answer Date Recorded Patient Health Questionnaire-9 Score 5 05/01/2025 Patient Health Questionnaire-9 Score 5 05/01/2025 Last PHQ-9: Questionnaire Data Not on file 0 05/01/2025 Housing Stability Answer Date Recorded What is your housing situation today? I have maria e barnes 05/01/[address] you li ve. Do you have problems with any of the following? None of the above 05/01/2025 Food Insecurity Answer Date Recorded Within the past 12 months, y ou worried that your food would run out before you got money to buy more: Sometimes True 2024 Within the past 12 months,th e food you bought just didn't last and you didn't have enough money to get more: Often true 05/01/2025 Transportation Answer Date Recorded In the past 12 months, has l ack of transportation kept you from medical appts, meetings, work or from getting things needed for daily living? No 05/01/2025 Utilities Answer Date Recorded In the past 12 months, has t he electric, gas, oil or water company threatened to shut off services in your home? No 05/01/2025 Depression Answer Date Recorded Patient Health Questionnaire-2 Score 2 05/01/2025 Internet Access Answer Date Recorded Internet Access Q1 Yes 05/01/2025 Internet Access Q2 Not on file 05/01/2025 Sex and Gender Information Value Date Recorded Sex Assigned at Male 06/14/2022 10:27 AM EDT Legal Sex Male 10:27 AM EDT Gender Identity Male 06/14/2022 10:27 AM EDT Sexual Orientation Choose not to disclose 2021 10:27 AM EDT documented as of this encounter Plan of Treatment Not on file documented as of this encounter Visit Diagnoses Not on filedocumented in this encounter Additional Health Concerns Assessment Noted Time PHQ-9 Depression Total Score: 5 05/01/20 9:10 AM EDT documented as of this encounter Care Teams Crm Consultant Relationship Specialty Start Date End Date Betty Bradley MD [address] [place] [address] PCP - General Family Medicine 05/01/25 06/11/25 Ivana Barnes CNP [address] [place] [address] PCP - General Family Medicine 06/12/25 documented as of this encounter
--- OUTSIDE RECORDS SUMMARY | 2025-07-25 00:41 | XMS_ITS | Clinical Summary ---
Author Organization [employer] Address [address] [facility] [address] [place] [address] Care Team Providers Care Stereotyper Apprentice Name Role Phone CameronIvana MANJIT Primary Care Provider [phone] Allergies No known active allergies Medications metoprolol tartrate (Lopressor) 50 MG tablet Take 1 tablet (50 mg) by mouth 2 times daily. 180 tablet 3 5 05/01/20 26 Active lisinopril 40 MG tablet Take 1 tablet (40 mg) by mouth Once per day. 90 tablet 3 5 05/01/20 26 Active rivaroxaban (Xarelto) 2.5 MG tablet Take 1 tablet (2.5 mg) by mouth Once per day. 60 tablet 3 5 Active bacitracin 500 UNIT/GM ointment Apply topically 2 times daily. 14 g 5 Active triamcinolone (Kenalog) 0.1 % cream Apply topically if needed in the morning and at bedtime (pain and swelling). 30 g 2 5 Active Blood Pressure kitIndications:Pr imary hypertension 1 kit Once per day. 1 kit 5 Active Active Problems Problem Noted Date Diagnosed Date Sleep apnea 2021 Atrial fibrillation (CMS/HCC) 05/08/2021 Encounters Date Type Department Care Team Description 05/08/2025 10:00 AM EDT Clinical Support [facility] [address] [place] [address] Cherie Brandon RN Paroxysmal atrial fibrillation (CMS/HCC); Sleep apnea, unspecified type 05/08/2025 Telephone [facility] [address] [place] [address] Cherie Brandon RN 05/08/2025 Education [facility] [address] [place] [address] Cherie Brandon RN 05/08/2025 Travel 05/07/2025 Telephone [facility] [address] [place] [address] Cherie Brandon, RN Care Coordination 05/01/2025 9:00 AM EDT Office Visit [facility] [address] [place] [address] Betty Bradley MD Primary hypertension (Primary Dx); Atrial fibrillation, unspecified type (CMS/HCC); Sleep apnea, unspecified type; Intrinsic atopic dermatitis; 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; Encounter for immunization; Screening for colon cancer; Dietary counseling; Exercise counseling 05/01/2025 Patient Outreach [facility] [address] [place] [address] Betty Bradley MD Care Coordination (CHW outreach for SDOH food needs-referral completed /) 05/01/2025 Telephone [facility] [address] [place] [address] Betty Bradley MD 05/01/2025 Travel 04/30/2025 Travel 04/30/2025 Telephone [facility] [address] [place] [address] Betty Bradley MD Chart Prep from Last 3 Months Immunizations Immunization Administration Dates Next Due Pfizer Covid-19 Vaccine 12+ 10/05/2021, 2 Tdap 05/01/2025 Family History Medical History Relation Name Comments HTN [Other] DM ,fibromyalgia Mother Relation Name Status Comments Father Mother Alive Social History Tobacco Use Types Packs/Day Years Used Date Smoking Tobacco: Former Cigarettes Smokeless Tobacco: Former Tobacco Cessation:Counseling Given: Not Answered Alcohol Use Standard Drinks/Week Comments Never 0 [...] not to disclose 2021 10:27 AM EDT Last Filed Vital Signs Vital Sign Reading Time Taken Comments Blood Pressure 144/84 05/08/2025 10:34 AM EDT Pulse 71 05/08/2025 10:33 AM EDT Temperature 36.4 C (97.5 F) 05/01/2025 9:03 AM EDT Respiratory Rate 18 05/01/2025 9:03 AM EDT Oxygen Saturation - - Inhaled Oxygen Concentration - - Weight 116 kg (255 lb 12.8 oz) 05/08/2025 10:33 AM EDT Height 182.9 cm (6') 05/01/2025 9:03 AM EDT Body Mass Index 34.69 05/01/2025 9:03 AM EDT Plan of Treatment Health Maintenance Due Date Last Done Comments CT Colonography 1972 Colonoscopy 1972 FIT 1972 HIV Screening 1972 Lipid Panel 1972 Sigmoidoscopy 1972 Family Planning (PISQ) 1987 Hepatitis C Screening 1990 Hepatitis B Vaccines (1 of 3 - 19+ 3-dose series) 1991 Pneumococcal Vaccine: 50+ Years (1 of 1 - PCV) 2022 Zoster Vaccines (1 of 2) 2022 COVID-19 Vaccine (3 - 2024-2 6 season) 2025 10/05/2021, 09/14/2021 Influenza Vaccine (#1) 2025 Disability Screening 04/30/2026 04/30/2025 Alcohol/Substance Use Screening 05/01/2026 05/01/2025 Depression Screening 05/01/2026 05/01/2025, 05/01/2025 SDOH Screening 05/01/2026 05/01/2025 Tobacco Screening 05/01/2026 05/01/2025 FOBT 05/28/2026 05/28/2025 Colorectal Cancer Screening 05/28/2028 FIT DNA/Cologuard 05/28/2028 05/28/2025 DTaP/Tdap/Td Vaccines (2 - T d or Tdap) 05/01/2035 05/01/2025 RSV Patients and Patients Aged 60 years or older (1 - 1-dose 75+ series) 2047 HIB [...] patient's age to complete this topic Meningococcal Vaccine Aged Out No jorge a ruth eligible based on patient's age to complete this topic RSV under 20 months Aged Out No longe r eligible based on patient's age to complete this topic Rotavirus Vaccines Aged Out No longer eligible based on patient's age to complete this topic Procedures Procedure Name Priority Date/Time Associated Diagnosis Comments LAB COLOGUARD COLON CANCER SCREEN Routine 05/28/2025 11:00 AM EDT Screening for colon cancer AMB REFERRAL TO OPHTHALMOLOGY Routine 05/16/2025 Primary hypertension from Last 3 Months Results * Cologuard?? colon cancer screening (05/28/2025 11:00 AM EDT) Cologuard Result Negative Negative 06/04/20 25 9:51 AM EDT [facility] (CLIA #:[id number]) Comment: The Cologuard (TM) test was performed on this specimen. NEGATIVE TEST RESULT. A negative Cologuard result indicates a low likelihood that a colorectal cancer (CRC) or advanced adenoma (adenomatous polyps with more advanced pre-malignant features) is present. The chance that a person with a negative Cologuard test has a colorectal cancer is less than 1 in 1500 (negative predictive value >99.9%) or has an advanced adenoma is less than 5.3% (negative predictive value 94.7%). These data are based on a prospective cross-sectional study of 10,000 individuals at average risk for colorectal cancer who were screened with both Cologuard and colonoscopy. (Dotty T. et al, N Engl J Med 2014;370(14):1286- 1297) The normal value (reference range) for this assay is negative. COLOGUARD RE-SCREENING RECOMMENDATION: Periodic colorectal cancer screening is an important part of preventive healthcare for asymptomatic individuals at average risk for colorectal cancer. Following a negative Cologuard result, the [place] [employer] and U.S. Multi-Society Task Force screening guidelines recommend a Cologuard re-screening interval of 3 years. References: [place] [employer] Guideline for Colorectal Cancer Screening: https://www.cancer.org/cancer/ebvbf-ajzikj-hhtujy/mhloubxxp-exvwqwmbf-tihnmtu/ac s-rec ommendations.html.; Cosme GAY, Yesi PARTIDA, Malaika HERNANDEZ, Colorectal Cancer Screening: Recommendations for Physicians and Patients from the U.S. Multi-Society Task Force on Colorectal Cancer Screening , Am J Gastroenterology 2017; 112:9994-6325. TEST DESCRIPTION: Composite algorithmic analysis of stool DNA-biomarkers with hemoglobin immunoassay. Quantitative values of individual biomarkers are not reportable and are not associated with individual biomarker result reference ranges. Cologuard is intended for colorectal cancer screening of adults of either sex, 45 years or older, who are at average-risk for colorectal cancer (CRC). Cologuard has been approved for use by the U.S. FDA. The performance of Cologuard was established in a cross sectional study of average-risk adults aged 50-84. Cologuard performance in patients ages 45 to 49 years was estimated by sub-group analysis of near-age groups. Colonoscopies performed for a positive result may find as the most clinically significant lesion: colorectal cancer [4.0%], advanced adenoma (including sessile serrated polyps greater than or equal to 1cm diameter) [20%] or non- advanced adenoma [31%]; or no colorectal neoplasia [45%]. These estimates are derived from a prospective cross-sectional screening study of 10,000 individuals at average risk for colorectal cancer who were screened with both Cologuard and colonoscopy. (Dotty [place] et al, N Engl J Med 2014;370(14):4001-0398.) Cologuard may produce a false negative or false positive result (no colorectal cancer or precancerous polyp present at colonoscopy follow up). A negative Cologuard test result does not guarantee the absence of CRC or advanced adenoma (pre-cancer). The current Cologuard screening interval is every 3 years. ([place] [employer] and U.S. Multi-Society Task Force). Cologuard performance data in a 10,000 patient pivotal study using colonoscopy as the reference method can be accessed at the following location: www.[employer]/results. Additional description of the Cologuard test process, warnings and precautions can be found at www.[employer].com. Stool specimen (specimen) 05/28/2025 11:00 AM EDT 05/29/2025 2:17 PM EDT us Betty Bradley MD LAB MOLECULAR DIAGNOSTICS ORDERA BLES Final Result [facility] (CLIA #:[id number]) [address] [place] [address], [place] [phone] * Referral to Ophthalmology (05/16/2025) Betty Bradley MD OUTPATIENT REFERRAL ORDERABLES F inal Result from Last [address] [place] [address] Care Teams Stereotyper Apprentice Relationship Specialty Start Date End Date Ivana Barnes CNP [address] [place] [phone] PCP - General Family Medicine 06/12/25
== END 2025-07-24 16:08 | disposition home or self-care (01) ==
LOC: HO.HGS 15:56
PROVIDERS: PCP Family Medicine; Visit Provider Surgery
DX: N50.89 Other specified disorders of the male genital organs (principal)
CPT/HCPCS: 17250; 99203

== ENCOUNTER → 2025-07-24 15:55 | Outpatient (BNVA) | payer OTHER, SELFPAY | PROVIDERS: PCP Family Medicine; Visit Provider Surgery | DX: N50.89 Other specified disorders of the male genital organs (principal); Z79.01 Long term (current) use of anticoagulants | CPT/HCPCS: 17250; 99202 ==